=== PATIENT | female | born 1935 | race Caucasian/White ===

== ENCOUNTER 2020-12-31 03:04 | Observation (INO) | payer MEDICARE, OTHER ==
[2020-12-31] VITALS (9 sets, daily range): BP systolic 130–139; BP diastolic 56–59
[~2020-12-31] VITALS: Ht 160 cm; Wt 52.2 kg
[~2020-12-31 03:04] MED LIST: CIPRO500 MG PO
[2020-12-31] MEDS ORDERED: ONDANSETRON HCL INJ 2MG/ML 2ML 2 MG/ML VIAL IV STA (03:23)
[2020-12-31] MEDS ORDERED: MORPHINE SULFATE 5 MG/ML VIAL IV ONE (03:30)
[2020-12-31 03:32] LABS: BASOPHILS % 0.3 % (0.0-1.0); EOSINOPHILS # (AUTO) 0.1 (0.0-0.4); EOSINOPHILS % 1.8 % (0.0-6.0); HEMOGLOBIN 12.7 g/dL (12.0-16.0); MEAN CORPUSCULAR HEMOGLOBIN 29.6 pg (28-32); MEAN CORPUSCULAR HGB CONC 32.6 g/dL (31-35); MEAN CORPUSCULAR VOLUME 90.9 fL (81-99); MONOCYTES # (AUTO) 0.5 (0.2-0.8); MONOCYTES % 7.4 % (4.4-11.3); NEUTROPHILS # (AUTO) 3.9 (2.1-6.9); NEUTROPHILS % 58.9 % (38.7-80.0); PLATELET COUNT 280 x10e3/uL (140-360); RED BLOOD COUNT 4.29 x10e6/uL (3.6-5.1); RED CELL DISTRIBUTION WIDTH 12.7 % (11.7-14.4)
[2020-12-31 03:38] LABS: CLARITY,URINE CLEAR (CLEAR); COLOR,URINE YELLOW (YELLOW); KETONES,URINE NEGATIVE (NEGATIVE); LEUKOCYTE ESTERASE ,URINE SMALL (NEGATIVE); NITRITE,URINE NEGATIVE (NEGATIVE); PROTEIN,URINE DIPSTICK NEGATIVE (NEGATIVE); URINE UROBILINOGEN 0.2 mg/dL (0.2 - 1)
[2020-12-31 03:45] LABS: BACTERIA,URINE FEW /HPF; EPITHELIAL CELLS,URINE FEW /LPF; RBC,URINE 0-5 /HPF (0-5)
[2020-12-31 03:51] LABS: ALBUMIN 3.6 g/dL (3.5-5.0); ALBUMIN/GLOBULIN RATIO 1.1 (0.8-2.0); CALCIUM 10.2 mg/dL (8.4-10.2); CREATININE, SERUM 1.04 mg/dL (0.57-1.11)
[2020-12-31 03:58] LABS: CREATINE KINASE MB 1.2 ng/mL (0-5.0)
[2020-12-31] MEDS ORDERED: SODIUM CHLORIDE 0.9% 50ML 50 ML ONE (04:07)
[2020-12-31] MEDS ORDERED: IOPAMIDOL 370 MG/ML 200 ML INFUS..BTL INJ ONE (04:08)
[2020-12-31] MEDS ORDERED: Morphine 4mg Syringe 4 MG/ML INJ ONE (04:40)
[2020-12-31] MEDS ORDERED: CIPROFLOXACIN 400 MG/D5W 200ML 200 ML IV STA (04:42)
[2020-12-31] MEDS ORDERED: Morphine 4mg Syringe 4 MG/ML INJ IV PRN ×2 (05:00→13:00)
[2020-12-31] MEDS ORDERED: MELATONIN 5 MG TABLET PO PRN ×2 (12:00→21:00)
[2020-12-31] MEDS ORDERED: ALBUTEROL/IPRATROPIUM 3 ML NEB NEB PRN (12:00)
[2020-12-31] MEDS ORDERED: BENZONATATE 100 MG CAP PO PRN (12:00)
[2020-12-31] MEDS ORDERED: DOCUSATE SODIUM 100 MG CAP PO PRN (12:00)
[2020-12-31] MEDS ORDERED: ONDANSETRON HCL INJ 2MG/ML 2ML 2 MG/ML VIAL IV PRN (12:00)
[2020-12-31] MEDS ORDERED: DEXTROSE 50% SYRINGE 50 ML IV PRN (12:00)
[2020-12-31] MEDS ORDERED: HYDRALAZINE HCL 20 MG/ML VIAL IV PRN (12:00)
[2020-12-31] MEDS ORDERED: POTASSIUM CHLORIDE 20 MEQ TAB CR PO PRN (12:00)
[2020-12-31] MEDS ORDERED: KETOROLAC TROMETHAMINE 30 MG/ML VIAL IV PRN (12:00)
[2020-12-31] MEDS ORDERED: SIMETHICONE 80 MG CHEW PO PRN (12:00)
[2020-12-31] MEDS ORDERED: ACETAMINOPHEN 325 MG TAB PO PRN (12:00)
[2020-12-31] MEDS ORDERED: DIPHENHYDRAMINE HCL 25 MG CAP PO PRN (12:00)
[2020-12-31] MEDS ORDERED: LIDOCAINE 4% PATCH TP PRN (12:00)
[2020-12-31] MEDS: DEXTROSE 5%/0.9% SOD CHL 1,000 ML IV SCH ×2 (13:11→23:20)
[2020-12-31] MEDS ORDERED: OSTEO BI-FLEX1 EAC2 (16:42)
[2020-12-31] MEDS ORDERED: ARICEPT5 MG PO (16:42)
[2020-12-31] MEDS ORDERED: AMLODIPINE BESYL5 MG PO (16:42)
[2020-12-31] MEDS ORDERED: PRESERVISION T1 EACH (16:42)
[2020-12-31] MEDS ORDERED: DICLOFENAC SOD100 G1 (16:42)
[2020-12-31] MEDS ORDERED: LEVOTHYROXINE75 MCG PO (16:42)
[2020-12-31] MEDS ORDERED: ESTRACE42.5 GM VG (16:42)
[2020-12-31] MEDS ORDERED: VITAMIN B-121000 MC1 PO (16:42)
[2020-12-31] MEDS: ENOXAPARIN SOD INJ 40 MG/0.4 ML SYR SC SCH (17:24)
[2021-01-01] VITALS (8 sets, daily range): BP systolic 155–164; BP diastolic 62–79
[2021-01-01 05:51] LABS: BASOPHILS % 0.4 % (0.0-1.0); EOSINOPHILS # (AUTO) 0.2 (0.0-0.4); EOSINOPHILS % 2.8 % (0.0-6.0); HEMATOCRIT 35.2 % (34.2-44.1); HEMOGLOBIN 11.5 g/dL (12.0-16.0); LYMPHOCYTES # (AUTO) 1.3 (1.0-3.2); LYMPHOCYTES % 25.3 % (18.0-39.1); MEAN CORPUSCULAR HEMOGLOBIN 29.9 pg (28-32); MEAN CORPUSCULAR HGB CONC 32.7 g/dL (31-35); MEAN CORPUSCULAR VOLUME 91.4 fL (81-99); MONOCYTES # (AUTO) 0.4 (0.2-0.8); MONOCYTES % 7.9 % (4.4-11.3); NEUTROPHILS # (AUTO) 3.4 (2.1-6.9); NEUTROPHILS % 63.2 % (38.7-80.0); PLATELET COUNT 245 x10e3/uL (140-360); RED BLOOD COUNT 3.85 x10e6/uL (3.6-5.1); RED CELL DISTRIBUTION WIDTH 12.7 % (11.7-14.4)
[2021-01-01 06:10] LABS: ALBUMIN 2.9 g/dL (3.5-5.0); ANION GAP 9.7 mmol/L (8-16); CALCIUM 8.8 mg/dL (8.4-10.2); CREATININE, SERUM 0.77 mg/dL (0.57-1.11); POTASSIUM 3.7 mmol/L (3.5-5.1)
[2021-01-01 06:37] LABS: MAGNESIUM 1.8 MG/DL (1.3-2.1); PHOSPHORUS 2.4 MG/DL (2.3-4.7)
[2021-01-01] MEDS: PANTOPRAZOLE SOD 40 MG TABEC PO SCH (08:08)
[2021-01-01] MEDS: DEXTROSE 5%/0.9% SOD CHL 1,000 ML IV SCH ×2 (08:08→17:34)
[2021-01-01] MEDS ORDERED: SODIUM CHLORIDE 0.9% 50ML 50 ML ONE (12:54)
[2021-01-01] MEDS ORDERED: GADOBENATE DIMEGLUMINE 1 ML IV ONE (12:54)
[2021-01-01] MEDS ORDERED: ONDANSETRON HCL 4 MG ORAL DISINTEGRATING TAB PO PRN (14:00)
[2021-01-01] MEDS: ENOXAPARIN SOD INJ 40 MG/0.4 ML SYR SC SCH (16:35)
[2021-01-01] MEDS ORDERED: MELATONIN 5 MG TABLET PO SCH (21:00)
[2021-01-01] MEDS ORDERED: DONEPEZIL HCL 5 MG TAB PO SCH (21:00)
[2021-01-02] VITALS: BP 181/90
[2021-01-02 04:00] VITALS: BP 150/63
[2021-01-02] MEDS: DEXTROSE 5%/0.9% SOD CHL 1,000 ML IV SCH (04:00)
[2021-01-02 05:51] LABS: BASOPHILS % 0.5 % (0.0-1.0); EOSINOPHILS # (AUTO) 0.2 (0.0-0.4); EOSINOPHILS % 3.9 % (0.0-6.0); HEMATOCRIT 36.4 % (34.2-44.1); HEMOGLOBIN 11.8 g/dL (12.0-16.0); LYMPHOCYTES # (AUTO) 1.1 (1.0-3.2); LYMPHOCYTES % 20.1 % (18.0-39.1); MEAN CORPUSCULAR HEMOGLOBIN 29.6 pg (28-32); MEAN CORPUSCULAR HGB CONC 32.4 g/dL (31-35); MEAN CORPUSCULAR VOLUME 91.5 fL (81-99); MONOCYTES # (AUTO) 0.4 (0.2-0.8); MONOCYTES % 7.2 % (4.4-11.3); NEUTROPHILS # (AUTO) 3.8 (2.1-6.9); NEUTROPHILS % 67.9 % (38.7-80.0); PLATELET COUNT 254 x10e3/uL (140-360); RED BLOOD COUNT 3.98 x10e6/uL (3.6-5.1); RED CELL DISTRIBUTION WIDTH 12.9 % (11.7-14.4)
[2021-01-02] MEDS ORDERED: LEVOTHYROXINE SODIUM 75 MCG TAB PO SCH (06:00)
[2021-01-02 06:11] LABS: ALBUMIN 2.8 g/dL (3.5-5.0); ANION GAP 8.2 mmol/L (8-16); CALCIUM 8.8 mg/dL (8.4-10.2); CREATININE, SERUM 0.7 mg/dL (0.57-1.11); POTASSIUM 3.2 mmol/L (3.5-5.1)
[2021-01-02 07:35] VITALS: BP 157/76
[2021-01-02 08:49] VITALS: BP 157/76
[2021-01-02] MEDS ORDERED: AMLODIPINE BESYLATE 5 MG TAB PO SCH (09:00)
[2021-01-02] MEDS: PANTOPRAZOLE SOD 40 MG TABEC PO SCH (10:25)
[2021-01-02 10:46] VITALS: BP 135/68
== END 2021-01-02 14:50 | disposition home or self-care (01) ==
LOC: ER 03:21 → INTOOBSV 05:19 → ERHOLD 05:19 → MED/SURG 07:45
PROVIDERS: ADMIT Internal Medicine; ATTEND Internal Medicine
DX: K85.90 Acute pancreatitis without necrosis or infection, unspecified (principal); E86.0 Dehydration; R74.8 Abnormal levels of other serum enzymes; Z90.49 Acquired absence of other specified parts of digestive tract; I10 Essential (primary) hypertension; E03.9 Hypothyroidism, unspecified; F03.90 Unspecified dementia, unspecified severity, without behavioral disturbance, psychotic disturbance, mood disturbance, and anxiety; Z88.0 Allergy status to penicillin; Z88.2 Allergy status to sulfonamides; Z20.822 Contact with and (suspected) exposure to COVID-19
CPT/HCPCS: 36415 ×3; 71045; 74177; 74183; 80053 ×3; 80061; 81001; 82550; 82553; 83036; 83690 ×3; 83735; 84100; 84484; 85025 ×3; 86301; 93005; 96360; 99251; 99284; A9577; G0378 ×3; J0360; J0744; J1650 ×2; J1885; J2270 ×2; J2405; J7042 ×3; Q9967; S0164 ×2; U0002